=== PATIENT | female | born 1940 | race Caucasian/White ===

== ENCOUNTER → 2018-01-29 | Outpatient (CLI) | payer MEDICARE ==
[~2018-01-29] MED LIST: ABIL15TA2 PO; BUPR100CR PO; LISI10 PO; SERT100 PO; WELL150T PO
--- NOTE | 2018-01-29 16:19 | RADRPT ---
EXAM DATE/TIME: 01/29/2018 14:53 [place] COMPARISON: No previous studies available for comparison. INDICATIONS : Tremors. DOSE: 5.0 mCi Ioflupane Iodine-123 in 2.5 ml total volume MEDICATION(S): 130 mg Potasium Iodine PO one hour prior to injection SPECT IMAGIN.5 hours. IMAGING: SPECT/CT imaging with fusion was performed. RADIATION DOSE: 5 CTDIvol (mGy) MEDICAL HISTORY : Dementia. SURGICAL HISTORY : Tonsillectomy. ENCOUNTER: Initial ACUITY: 7 - 11 months PAIN SCALE: 0/10 LOCATION: Head. TECHNIQUE: SPECT imaging of the brain was performed in sagittal, axial and coronal planes. Attenuation correctio n was performed with computed tomography and both the attenuation correction and non-attenuation yovany ected data sets were reviewed. FINDINGS: There is normal biodistribution of radionuclide with symmetric crescent-shaped areas of activity are in the striatum which appears distinct relative to the surrounding brain tissue. CONCLUSION: Negative DaTscan. Normal distribution of radiotracer in the striatum. Franklin Sprague MD on January 29, 2018 at 16:15 Board Certified Radiologist. This report was verified electronically.
== END ==
LOC: HRAD 10:31
PROVIDERS: ATTEND Psychiatry & Neurology Neurology
DX: G20 Parkinson's disease (principal)
CPT/HCPCS: 78607; A9584